=== PATIENT | male | born 1975 | race Caucasian/White ===

== ENCOUNTER → 2020-10-17 | Outpatient (CLI) | payer OTHER ==
[~2020-10-17] MED LIST: ACET500; ACYC400 PO; CIPR500; HYDR1TAB94 PO; LEVA.63IS; MECL25 PO; PRED10 PO; PREDNISONE PO
== END ==
LOC: LAB SHORT 11:12 → PLD 11:12
DX: L98.9 Disorder of the skin and subcutaneous tissue, unspecified (principal); L30.8 Other specified dermatitis
CPT/HCPCS: 88305; 88312

== ENCOUNTER 2021-05-08 11:24 | Emergency (ER) | payer OTHER ==
[~2021-05-08] VITALS: Ht 182.9 cm; Wt 90.7 kg
[2021-05-08] MEDS ORDERED: CEPH500 PO (12:29)
[2021-05-08] MEDS ORDERED: Norco 5-325 Ta1 EACH PO (14:14)
== END 2021-05-08 13:15 | disposition home or self-care (01) ==
LOC: ER 11:24
DX: S62.522B Displaced fracture of distal phalanx of left thumb, initial encounter for open fracture (principal); Z23 Encounter for immunization; W23.0XXA Caught, crushed, jammed, or pinched between moving objects, initial encounter
CPT/HCPCS: 73140; 90471; 90714; 99283-25